=== PATIENT | male | born 1980 | race Caucasian/White ===

== ENCOUNTER 2025-09-03 17:49 | Emergency (ER) | payer MEDICAID, SELFPAY ==
[2025-09-03 17:58] VITALS: BMI 24.6
[2025-09-03 18:00] VITALS: BP 148/102; PULSE 101; RESP 24; TEMP 36.6; O2SAT 99
--- NOTE | 2025-09-03 18:04 | XR_ITS ---
Examination: Hand, examination: Left hand 2 views INDICATIONS: Injury to the hand today, hand pain Date and time: September 03, 2025 1808 hours TECHNIQUE: AP lateral left and 2 views FINDINGS: Significant osteoarthritis distal interphalangeal joint fifth digit No acute fracture No dislocation IMPRESSION: No acute fracture
--- NOTE | 2025-09-03 18:04 | XR_ITS ---
EXAMINATION: AP chest single view TECHNIQUE: AP portable upright chest single view Date and time: September 03, 2025, 1810 hours INDICATIONS: Shortness of breath today. FINDINGS: Normal heart size. The lungs are clear. The osseous structures are intact IMPRESSION: No active disease
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
[2025-09-03] MEDS: HYDROmorphone INJ 2 MG/ML VIAL 1 MG IVP (18:26)
[2025-09-03] MEDS: CIPROFLOXACIN/D5w 400 MG IVPB 400 MG/200 ML BAG 200 MG IV (18:27)
[2025-09-03] MEDS: BACITRACIN OINT 1 GM PACKET TOP (18:27)
[2025-09-03] MEDS: ONDANSETRON INJ 2 MG/ML INJ 2 ML 4 MG IVP (18:27)
[2025-09-03] MEDS: KETOROLAC INJ 30 MG/ML VIAL IVP (18:28)
[2025-09-03] MEDS: LIDOCAINE/PRILOCAINE CR 5GM 5 GM TUBE TOP (18:28)
[2025-09-03] MEDS: MethylPREDNISolone SOD SUCC 62.5 MG/ML 2ML VIAL 125 MG IVP (18:29)
[2025-09-03] MEDS: DIPHTH,PERTUSS(ACELL),TET VAC 0.5 ML SYR- ADULT IMi (18:30)
[2025-09-03] MEDS: SODIUM CHLORIDE 0.9% 1000 ML 1,000 ML 999 ML IV (18:32)
[2025-09-03 18:52] LABS: Basophils # (Auto) 0.1 Thou/mm3 (0.0-0.2); Basophils % (Auto) 1 % (0-2.5); Eosinophils # (Auto) 0.4 Thou/mm3 (0.0-0.5); Eosinophils % (Auto) 5 % (0-10); Hematocrit 43.1 % (41.0-53.0); Hemoglobin 15.4 g/dL (13.5-16.0); Immature Granulocytes Auto 0.01 Thou/mm3 (0.00-0.00); Lymphocytes # (Auto) 2.7 Thou/mm3 (1.0-4.8); Lymphocytes % (Auto) 33 % (10-50); Mean Corpuscular HGB Conc 35.7 g/dl (31.0-37.0); Mean Corpuscular Hemoglobin 29.8 pg (25.0-35.0); Mean Corpuscular Volume 83 fL (80-100); Monocytes # (Auto) 0.5 Thou/mm3 (0.0-0.8); Monocytes % (Auto) 6 % (0-12); Neutrophils # (Auto) 4.6 Thou/mm3 (1.8-7.7); Neutrophils % (Auto) 56 % (37-80); Nucleated Red Blood Cell # 0.00 Thou/mm3 (0.00-0.00); Nucleated Red Blood Cell % 0 /100 WBC (0); Platelet Count 263 Thou/mm3 (140-440); RDW Standard Deviation 36.7 fL (35.1-43.9); Red Blood Count 5.17 Miln/mm3 (4.50-5.90); White Blood Count 8.3 Thou/mm3 (3.8-10.6)
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
[2025-09-03 19:07] LABS: INR 1.0 (0.9-1.3); Partial Thromboplastin Time 24.3 Seconds (22.0-36.0); Prothrombin Time 11.1 Seconds (9.0-12.2)
[2025-09-03 19:12] LABS: Alcohol, Blood Medical < 3.0 mg/dL (0-10.0); Anion Gap 11 (7-16); BUN/Creatinine Ratio 15 Ratio (12-20); Blood Urea Nitrogen 16 mg/dL (9-23); Calcium 9.6 mg/dL (8.3-10.6); Carbon Dioxide 24.9 mMol/L (20.0-31.0); Chloride 106 mMol/L (98-107); Creatinine (Component) 1.1 mg/dL (0.6-1.3); Estimated Creatinine Clearance 97.9 mL/min (>60); Glucose 92 mg/dL (74-106); Magnesium 1.8 mg/dL (1.6-2.6); Osmolality,Calculated 284 (275-295); Potassium 3.8 mMol/L (3.4-5.1); Sodium 142 mMol/L (136-145); eGFR > 60 See Note
[2025-09-03 20:26] VITALS: BP 151/100; PULSE 98; RESP 18; O2SAT 98
== END 2025-09-03 20:27 | disposition home or self-care (01) ==
PROVIDERS: Emergency Provider Emergency Medicine
DX: T20.16XA Burn of first degree of forehead and cheek, initial encounter (principal); T31.0 Burns involving less than 10% of body surface; S60.512A Abrasion of left hand, initial encounter; R06.02 Shortness of breath; X08.8XXA Exposure to other specified smoke, fire and flames, initial encounter; Z23 Encounter for immunization
CPT/HCPCS: 36415; 71045; 73120; 80048; 80307; 80320; 83735; 85025; 85610; 85730; 90471; 90715; 96365; 96366; 96375; 99284; J0744; J1171; J1885; J2405; J2919; J7030; A9270; G0480